=== PATIENT | male | born 1960 | race Caucasian/White ===

== ENCOUNTER 2018-09-05 08:50 | Day surgery (SDC) | payer OTHER ==
[2018-09-05 10:00] VITALS: BMI 34.5
[2018-09-05 11:12] VITALS: TEMP 97.6
[2018-09-05 12:25] VITALS: BP 119/68; PULSE 52
--- NOTE | 2018-09-06 16:15 | PATH ---
Surgical Pathology Report Patient Name: KEITH REBOLLEDO [facility]. Rec. #: [id number] /Age/Gender: 1960 (Age: 58) / M Account: [id number] Location: [facility]-ENDOSCOPY Taken: 09/05/2018 Received: 09/05/2018 Reported: 09/06/2018 Physicians: Gm Canela M.D. Specimen(s) Received A: POLYP RECTO SIGMOID B: POLYP SIGMOID C: RECTAL POLYP Clinical History Personal history of colonic polyp Postoperative diagnosis: Colon polyp Final Diagnosis A. RECTOSIGMOID COLON, POLYP, BIOPSY: HYPERPLASTIC POLYP. B. SIGMOID COLON, POLYP, BIOPSY: HYPERPLASTIC POLYP. C. RECTAL POLYP, BIOPSY: COLONIC MUCOSA WITH FOCAL SUPERFICIAL HYPERPLASTIC FEATURES. Electronically Signed Traci Levin M.D. Gross Description A. Received in formalin, labeled "polyp rectosigmoid" is a de la fuente, irregular portion of soft tissue measuring 0.4 cm. in greatest dimension. The specimen is submitted in toto in one cassette. B. Received in formalin, labeled "biopsy polyp sigmoid" are 2 de la fuente, irregular portions of soft tissue measuring 0.2 and 0.5 cm. in greatest dimension. The specimens are submitted in toto in one cassette. C. Received in formalin, labeled "biopsy rectal polyp" is a de la fuente, irregular portion of soft tissue measuring 0.4 cm. in greatest dimension. The specimen is submitted in toto in one cassette. 09/05/201809/05/2018
== END 2018-09-05 12:07 | disposition home or self-care (01) ==
LOC: JASU-ENDO 08:50
PROVIDERS: ATTEND Internal Medicine Gastroenterology
PROC: 0DBN8ZX Excision of Sigmoid Colon, Via Natural or Artificial Opening Endoscopic, Diagnostic (ICD-10-PCS; principal; 2018-09-05 10:15)
DX: Z86.010 Personal history of colon polyps (principal); D12.3 Benign neoplasm of transverse colon; D12.7 Benign neoplasm of rectosigmoid junction; K63.5 Polyp of colon; I10 Essential (primary) hypertension; E78.5 Hyperlipidemia, unspecified; I25.10 Atherosclerotic heart disease of native coronary artery without angina pectoris; Z95.810 Presence of automatic (implantable) cardiac defibrillator; Z95.5 Presence of coronary angioplasty implant and graft
CPT/HCPCS: 88305-TC

== ENCOUNTER 2019-03-20 08:08 | Emergency (ER) | payer OTHER | END 2019-03-20 12:12 | disposition home or self-care (01) | LOC: JER 08:08 ==

== ENCOUNTER 2022-07-13 00:21 | Observation (INO) | payer OTHER ==
[2022-07-13 00:36] VITALS: BMI 34.7
[2022-07-13] MEDS ORDERED: ASPIRIN 81 MG CHEWABLE TABLETS PO ONE (00:50)
[2022-07-13] MEDS ORDERED: ACETAMINOPHEN 1000 MG/100 ML BAG IVPB ONE (00:51)
[2022-07-13] MEDS ORDERED: NITROGLYCERIN SUBLINGUAL 1/200 0.3 MG BTL SL ONE (00:51)
[2022-07-13] MEDS ORDERED: ASPIRIN 325 MG TABLET PO ONE (00:51)
[2022-07-13] MEDS ORDERED: ACETAMINOPHEN INJECTION 100 ML IVPB ONE (01:00)
[2022-07-13] MEDS ORDERED: ASPIRIN 81 MG CHEWABLE TABLETS ONE ×2 (01:00→01:12)
[2022-07-13] MEDS ORDERED: NITROGLYCERIN SUBLINGUAL 1/150 0.4 MG TAB ONE (01:00)
[2022-07-13 01:02] LABS: BASO % 0.3 % (0-2.0); EOS % 0.9 % (0-4.5); HEMATOCRIT 39.9 % (35.4-49); HEMOGLOBIN 13.4 GM/dL (11.7-16.9); LYMPH % 34.5 % (8-40); MCH 29.6 pg (25.7-33.7); MCHC 33.6 g/dl (32.0-35.9); MEAN CELL VOLUME 88.3 fl (80-96); MEAN PLT VOLUME 9.1 fl (7.5-11.1); MONO % 9.4 % (3.8-10.2); NEUT % 54.9 % (42.8-82.8); PLATELET COUNT 213 10^3/uL (134-434); RBC 4.52 M/mm3 (4.00-5.60); RDW 15.2 % (11.9-15.9)
[2022-07-13 01:09] LABS: INR 1.08 (0.83-1.09); PROTHROMBIN TIME (PATIENT) 12.4 SEC (9.7-13.0)
[2022-07-13 01:29] LABS: BLOOD UREA NITROGEN 16.6 mg/dL (7-18); CALCIUM 9.3 mg/dL (8.5-10.1)
[2022-07-13 01:31] LABS: ALBUMIN 3.7 g/dl (3.4-5.0)
[2022-07-13 01:32] LABS: CREATININE 0.9 mg/dL (0.55-1.3)
[2022-07-13 01:34] LABS: BILIRUBIN,TOTAL 0.4 mg/dL (0.2-1); TOT PROT 7.1 g/dl (6.4-8.2)
[2022-07-13] MEDS ORDERED: DOCUSATE SODIUM 100 MG CAPSULE (FP) PO PRN (02:45)
[2022-07-13] MEDS ORDERED: ACETAMINOPHEN 325 MG TABLET (FP) PO PRN (02:45)
[2022-07-13] MEDS ORDERED: ENOXAPARIN NA (PORCINE) 40 MG/0.4 ML DISP.SYRIN SQ SCH (10:00)
[2022-07-13 10:35] VITALS: BP 150/49; PULSE 58; RESP 18; TEMP 98
== END 2022-07-13 10:30 | disposition left against medical advice (07) ==
LOC: JER 00:21 → JERBED 02:16
PROVIDERS: ADMIT Internal Medicine; ATTEND Internal Medicine
PROC: 3E033NZ Introduction of Analgesics, Hypnotics, Sedatives into Peripheral Vein, Percutaneous Approach (ICD-10-PCS; principal; 2022-07-13)
DX: R07.9 Chest pain, unspecified (principal); E11.9 Type 2 diabetes mellitus without complications; R00.1 Bradycardia, unspecified; Z95.0 Presence of cardiac pacemaker; E78.5 Hyperlipidemia, unspecified; I10 Essential (primary) hypertension
CPT/HCPCS: 36415; 80053; 82550; 83735; 84484; 85025; 85610; 85730; 93005; 93010; 96374; 99285-25; C9803-CS; G0378; U0003; U0005

== ENCOUNTER 2024-01-19 04:35 | Day surgery (SDC) | payer OTHER ==
[2024-01-16 12:15] VITALS: BMI 36.6
[2024-01-19] MEDS ORDERED: KETOROLAC TROMETHAMINE 30 MG/1 ML VIAL ONE (09:34)
[2024-01-19 10:37] VITALS: TEMP 98
[2024-01-19 11:03] VITALS: PULSE 60
[2024-01-19 11:07] VITALS: BP 110/70; RESP 13
== END 2024-01-19 11:15 | disposition home or self-care (01) ==
LOC: JASU-ENDO 04:35
PROVIDERS: ATTEND Internal Medicine Gastroenterology
PROC: 06LY8CC Occlusion of Hemorrhoidal Plexus with Extraluminal Device, Via Natural or Artificial Opening Endoscopic (ICD-10-PCS; 2024-01-19)
PROC: 0DBM8ZX Excision of Descending Colon, Via Natural or Artificial Opening Endoscopic, Diagnostic (ICD-10-PCS; principal; 2024-01-19 09:30)
DX: Z12.11 Encounter for screening for malignant neoplasm of colon (principal); D12.4 Benign neoplasm of descending colon; K64.1 Second degree hemorrhoids; Z86.010 Personal history of colon polyps; I10 Essential (primary) hypertension
CPT/HCPCS: 88305-TC

== ENCOUNTER 2025-08-06 07:27 | Emergency (ER) | payer OTHER ==
[2025-08-06 07:35] VITALS: BP 161/93; PULSE 61; RESP 18; TEMP 98.4; BMI 40.3
[2025-08-06] MEDS ORDERED: ACETAMINOPHEN 325 MG TABLET (FP) ONE (08:08)
[2025-08-06] MEDS: ACETAMINOPHEN 500 MG TABLET (FP) PO ONE (08:08)
== END 2025-08-06 09:20 | disposition home or self-care (01) ==
LOC: JERFT 07:27
DX: M25.561 Pain in right knee (principal); G89.29 Other chronic pain
CPT/HCPCS: 73562-TC-RT-FY; 99283-25